=== PATIENT | female | born 1970 | race Caucasian/White ===

== ENCOUNTER 2021-05-05 22:25 | Emergency (ER) | payer OTHER, SELFPAY ==
[2021-05-05] MEDS ORDERED: Fentanyl 100 MCG/2 ML VIAL ONE (22:28)
[2021-05-05] MEDS ORDERED: Ondansetron PF 4 MG/2 ML Vial ONE (22:28)
[2021-05-05] MEDS ORDERED: Boostrix 0.5 ML (Tdap) VIAL ONE (22:33)
[2021-05-05 22:53] LABS: #Basophils 0.1 thou/uL (0.0-0.2); #Eosinphils 0.5 thou/uL (0.0-0.7); #Lymphocytes 2.3 thou/uL (1.20-3.40); #Monocytes 1.1 thou/uL (0.11-0.59); #Neutrophils 14.1 thou/uL (1.40-6.50); %Basophils 0.7 % (0.0-1.0); %Eosinophils 2.9 % (0.0-10.0); %Lymphocytes 12.8 % (21.0-51.0); %Monocytes 5.8 % (0.0-10.0); %Neutrophils 77.7 % (42.0-75.0); Hemoglobin 14.5 g/dL (12.0-16.0); Mean Corpuscular HGB CONC 34.7 g/dL (32.0-36.0); Mean Corpuscular Hemoglobin 32.5 pg (27.0-31.0); Mean Corpuscular Volume 93.6 fL (78.0-98.0); Mean Platelet Volume 7.9 fL (7.4-10.4); Platelet Count 276 thou/uL (130-400); RBC Distribution Width 12.7 % (11.5-14.5); Red Blood Cell (RBC) Count 4.46 mill/uL (4.20-5.40); White Blood Cell (WBC) Count 18.1 thou/uL (4.8-10.8)
[2021-05-05 23:13] LABS: Anion Gap 17 mmol/L (10-20); BUN (Urea Nitrogen) 14 mg/dL (7.0-18.7); Calc. Creatinine Clearance 0 mL/min (70-130); Calcium 8.6 mg/dL (7.8-10.44); Carbon Dioxide 21 mmol/L (22-29); Chloride 106 mmol/L (98-107); Glucose 90 mg/dL (70-105); Potassium 3.9 mmol/L (3.5-5.1); Sodium 140 mmol/L (136-145)
[2021-05-06] MEDS ORDERED: Morphine 4 MG/ML VIAL ONE (00:52)
== END 2021-05-06 01:03 | disposition short-term general hospital (02) ==
LOC: ERS 22:25
DX: S91.052A Open bite, left ankle, initial encounter (principal); S91.012A Laceration without foreign body, left ankle, initial encounter; F17.210 Nicotine dependence, cigarettes, uncomplicated; Z23 Encounter for immunization; W54.0XXA Bitten by dog, initial encounter
CPT/HCPCS: 36415; 80048; 85025; 86850; 86900; 86901; 90471; 90715; 96374; 96375; G0390; J2270; J2405; J3010

== ENCOUNTER 2023-06-22 16:48 | Inpatient (IN) | payer SELFPAY ==
[2023-06-22] MEDS ORDERED: Ondansetron PF 4 MG/2 ML Vial IVP PRN (17:45)
[2023-06-22] MEDS ORDERED: Acetaminophen 325 MG TAB PO PRN (17:45)
[2023-06-22] MEDS ORDERED: Ketorolac Tromethamine 30 MG/ML VIAL IVP PRN (17:50)
[2023-06-22 19:15] VITALS: BMI 33.0
[2023-06-22] MEDS ORDERED: Famotidine/PF 20 mg/2ml Vial ONE (19:39)
[2023-06-22] MEDS ORDERED: Chlorhexidine Gluconate 15 ML UDCUP SSP ONE (19:43)
[2023-06-22] MEDS ORDERED: EPINEPHrine 1 MG/ML VIAL ONE (19:43)
[2023-06-22] MEDS ORDERED: Ophthalmic Irrigation Solution 0 ML ONE (19:43)
[2023-06-22] MEDS ORDERED: Lidocaine 1% (PF) 30 ML VIAL ONE (19:44)
[2023-06-22] MEDS ORDERED: Bacitracin Zinc Ointment 30 gm TUBE ONE (19:44)
[2023-06-22] MEDS ORDERED: Ampicillin/Sulbactam 3 GM in Sodium Chloride 0.9% 100 ML IVPB SCH (20:00)
[2023-06-22] MEDS ORDERED: Clindamycin/D5W 900 MG in Premix 1 BAG IVPB SCH (20:00)
[2023-06-22] MEDS ORDERED: Dexamethasone 4 mg/ml Vial SLOW IVP SCH (20:00)
[2023-06-22] MEDS ORDERED: Oxymetazoline HCl 0.05% (30 ML BOT) ONE (20:11)
[2023-06-22] MEDS ORDERED: Lidocaine 2% 6 ML (Jelly) SYR ONE (20:11)
[2023-06-22] MEDS ORDERED: PROPOFOL 20 ML ONE (20:16)
[2023-06-22] MEDS ORDERED: Midazolam HCl 2 mg/2 ml Vial ONE ×2 (20:16)
[2023-06-22] MEDS ORDERED: Lidocaine 2% PF 5 ML VIAL ONE (20:17)
[2023-06-22] MEDS ORDERED: fentaNYL 50 mcg/mL 1 mL Vial ONE ×2 (20:17→20:39)
[2023-06-22] MEDS ORDERED: Rocuronium Bromide 10 MG/ML (10ML VIAL) ONE ×2 (20:17→20:18)
[2023-06-22] MEDS ORDERED: Succinylcholine 200 MG/10 ml SYRINGE FS ONE ×2 (20:17→20:18)
[2023-06-22] MEDS ORDERED: Ketamine In 0.9 % NaCl 50 MG/5 ML SYRINGE ONE (20:17)
[2023-06-22] MEDS ORDERED: Dexamethasone 20 MG/5 ML VIAL ONE (20:18)
[2023-06-22] MEDS ORDERED: Lidocaine 1% PF 5 ML VIAL ONE (20:18)
[2023-06-22] MEDS ORDERED: Ondansetron PF 4 MG/2 ML Vial ONE ×2 (20:18→20:30)
[2023-06-22] MEDS ORDERED: PROPOFOL 200 MG/20 ML VIAL ONE (20:18)
[2023-06-22] MEDS ORDERED: Ketorolac Tromethamine 30 MG/ML VIAL ONE ×2 (20:18→20:30)
[2023-06-22] MEDS ORDERED: Clindamycin/D5W 900 mg/50 ml Premix Bag ONE (20:27)
[2023-06-22] MEDS ORDERED: Dexamethasone 4 mg/ml Vial ONE (20:30)
[2023-06-22] MEDS ORDERED: SUGAMMADEX SODIUM 200 MG/2 ML VIAL ONE (20:39)
[2023-06-22] MEDS: Famotidine 20 MG TAB PO SCH (20:56)
[2023-06-22] MEDS ORDERED: Lactated Ringer's 1,000 ML IV SCH (21:30)
[2023-06-22] MEDS ORDERED: Vancomycin 1 GM in Premix 1 BAG IVPB SCH (23:59)
[2023-06-23] MEDS: Ketorolac Tromethamine 30 MG/ML VIAL IVP PRN ×2 (02:08→20:32)
[2023-06-23] MEDS: Clindamycin/D5W 600 MG in Premix 1 BAG IVPB SCH ×4 (02:08→20:31)
[2023-06-23] MEDS ORDERED: Lorazepam 1 MG TAB PO PRN (03:56)
[2023-06-23] MEDS ORDERED: Lorazepam 2 MG/ML VIAL IM PRN (03:56)
[2023-06-23] MEDS ORDERED: Electrolyte Replacement Protocol 1 EACH FS SCH (04:00)
[2023-06-23] MEDS: Thiamine HCl 200 MG/2 ML VIAL SLOW IVP SCH (04:51)
[2023-06-23] MEDS: Dexamethasone 4 mg/ml Vial SLOW IVP SCH ×2 (05:04→12:40)
[2023-06-23] MEDS: HYDROcodone/Acetaminophen 5/325 mg Tablet PO PRN ×4 (05:18→17:56)
[2023-06-23] MEDS: Chlorhexidine Gluconate 15 ML UDCUP SSP SCH ×3 (09:42→20:32)
[2023-06-23] MEDS: Famotidine 20 MG TAB PO SCH ×2 (09:43→20:31)
[2023-06-23] MEDS: Multivit, Therapeutic 1 TAB PO SCH (09:43)
[2023-06-23] MEDS: Folic Acid 1 MG TAB PO SCH (09:43)
[2023-06-23 10:02] LABS: #Monocytes 0.1 thou/uL (0.11-0.59); #Neutrophils 11.8 thou/uL (1.40-6.50); %Basophils 0.2 % (0.0-1.0); %Lymphocytes 3.5 % (21.0-51.0); %Monocytes 0.9 % (0.0-10.0); %Neutrophils 94.9 % (42.0-75.0); Hematocrit 37.3 % (36.0-47.0); Hemoglobin 12.8 g/dL (12.0-16.0); Mean Corpuscular HGB CONC 34.3 g/dL (32.0-36.0); Mean Corpuscular Hemoglobin 31.6 pg (27.0-31.0); Mean Corpuscular Volume 92.1 fl (78.0-98.0); Platelet Count 210 10x3/uL (130-400); RBC Distribution Width 14.1 % (11.5-14.5); Red Blood Cell (RBC) Count 4.05 mill/uL (4.20-5.40); White Blood Cell (WBC) Count 12.5 10x3/uL (4.8-10.8)
[2023-06-23 10:21] LABS: Anion Gap 14 mmol/L (10-20); BUN (Urea Nitrogen) 10 mg/dL (9.8-20.1); Calc. Creatinine Clearance 104 mL/min (70-130); Calcium 8.8 mg/dL (7.8-10.44); Carbon Dioxide 23 mmol/L (22-29); Chloride 102 mmol/L (98-107); Estimated GFR 90; Glucose 198 mg/dL (70-105); Potassium 4.4 mmol/L (3.5-5.1); Sodium 135 mmol/L (136-145)
[2023-06-23] MEDS ORDERED: Electrolyte Replacement Protocol FS PRN (15:00)
[2023-06-23] MEDS: Bacitracin Zinc Ointment 30 gm TUBE TOP SCH (20:30)
[2023-06-24] MEDS: HYDROcodone/Acetaminophen 5/325 mg Tablet PO PRN ×3 (00:41→12:58)
[2023-06-24] MEDS: Clindamycin/D5W 600 MG in Premix 1 BAG IVPB SCH ×3 (03:01→14:43)
[2023-06-24] MEDS: Thiamine HCl 200 MG/2 ML VIAL SLOW IVP SCH (03:09)
[2023-06-24] MEDS ORDERED: Lorazepam 1 MG TAB PO PRN (03:56)
[2023-06-24 07:10] LABS: #Monocytes 0.8 thou/uL (0.11-0.59); #Neutrophils 12.5 thou/uL (1.40-6.50); %Basophils 0.2 % (0.0-1.0); %Eosinophils 0.1 % (0.0-10.0); %Lymphocytes 8.1 % (21.0-51.0); %Monocytes 5.5 % (0.0-10.0); %Neutrophils 85.5 % (42.0-75.0); Hematocrit 32.6 % (36.0-47.0); Hemoglobin 11.1 g/dL (12.0-16.0); Mean Corpuscular Hemoglobin 31.9 pg (27.0-31.0); Mean Corpuscular Volume 93.7 fl (78.0-98.0); Mean Platelet Volume 11.8 fL (7.4-10.4); Platelet Count 200 10x3/uL (130-400); RBC Distribution Width 14.4 % (11.5-14.5); Red Blood Cell (RBC) Count 3.48 mill/uL (4.20-5.40); White Blood Cell (WBC) Count 14.6 10x3/uL (4.8-10.8)
[2023-06-24 07:33] LABS: Anion Gap 13 mmol/L (10-20); BUN (Urea Nitrogen) 15 mg/dL (9.8-20.1); Calc. Creatinine Clearance 110 mL/min (70-130); Calcium 8.6 mg/dL (7.8-10.44); Carbon Dioxide 24 mmol/L (22-29); Chloride 104 mmol/L (98-107); Estimated GFR 96; Glucose 105 mg/dL (70-105); Potassium 4.3 mmol/L (3.5-5.1); Sodium 137 mmol/L (136-145)
[2023-06-24] MEDS: Chlorhexidine Gluconate 15 ML UDCUP SSP SCH ×2 (09:14→14:43)
[2023-06-24] MEDS: Multivit, Therapeutic 1 TAB PO SCH (09:15)
[2023-06-24] MEDS: Folic Acid 1 MG TAB PO SCH (09:15)
[2023-06-24] MEDS: Famotidine 20 MG TAB PO SCH (09:15)
[2023-06-24] MEDS: Bacitracin Zinc Ointment 30 gm TUBE TOP SCH ×2 (09:20→13:01)
[2023-06-24 15:38] VITALS: BP 144/80; TEMP 98.4
[2023-06-25] MEDS ORDERED: Lorazepam 1 MG TAB PO PRN (03:56)
[2023-06-26] MEDS ORDERED: Lorazepam 0.5 MG TAB PO PRN (03:56)
[2023-06-26] MEDS ORDERED: Thiamine 100 MG TAB PO SCH (09:00)
== END 2023-06-24 15:55 | disposition home or self-care (01) | DRG 580 ==
LOC: OBSVTOIN 16:48 → INTOOBSV 16:48 → T4-A 16:48
PROVIDERS: ADMIT Internal Medicine; ATTEND Internal Medicine
PROC: 0J910ZZ Drainage of Face Subcutaneous Tissue and Fascia, Open Approach (ICD-10-PCS; principal; 2023-06-22)
PROC: 0CDXXZ0 Extraction of Lower Tooth, Single, External Approach (ICD-10-PCS; 2023-06-22)
PROC: 0C940ZZ Drainage of Buccal Mucosa, Open Approach (ICD-10-PCS; 2023-06-22)
PROC: 0W930ZZ Drainage of Oral Cavity and Throat, Open Approach (ICD-10-PCS; 2023-06-22)
DX: L03.211 Cellulitis of face (principal); L02.01 Cutaneous abscess of face; Z88.5 Allergy status to narcotic agent; Z90.89 Acquired absence of other organs; Z98.890 Other specified postprocedural states; F17.210 Nicotine dependence, cigarettes, uncomplicated; K21.9 Gastro-esophageal reflux disease without esophagitis; F10.20 Alcohol dependence, uncomplicated; Z71.6 Tobacco abuse counseling
CPT/HCPCS: 36415; 80048; 85025; 96374; G0378; J0171; J1100; J1885; J2001; J2250; J2405; J2704; J3010; J3411; J3490; J7120; S0028